=== PATIENT | female | born 1980 ===

== ENCOUNTER 2017-02-15 12:00 | Inpatient (IN) | payer BC ==
[2017-02-15] MEDS: Lactated Ringer's 1,000 ML IV SCH ×2 (14:10→19:58)
[2017-02-15 14:31] VITALS: BMI 36.3
[2017-02-15 15:26] LABS: BASO % 0.4 % (0.0-2.0); EOS # 0.1 K/uL (0.0-0.7); EOS % 0.8 % (0.0-4.0); HEMATOCRIT 36.5 % (34.0-47.0); LYMPH # 2.6 K/uL (1.0-4.3); LYMPH % 25.3 % (20.0-40.0); MEAN CELL VOLUME 84.7 fl (81.0-99.0); MEAN CORPUSCULAR HGB CONC 33.1 g/dL (33.0-37.0); MEAN PLATELET VOLUME 9.7 fl (7.2-11.7); MONO # 0.8 K/uL (0.0-0.8); MONO % 7.5 % (0.0-10.0); NEUT # 6.8 K/uL (1.8-7.0); NRBC % 0.1 % (0.0-0.0); RED CELL DISTRIBUTION WIDTH 14.2 % (11.5-14.5); WHITE BLOOD COUNT 10.3 K/uL (4.8-10.8)
[2017-02-15] MEDS ORDERED: ceFAZolin IV 2 gm in Dextrose 2 GM/50 ML BAG IVPB ONE (16:49)
[2017-02-15] MEDS ORDERED: Oxytocin 30 UNITS in Sodium Chloride 0.9% 500 ML IV ONE (16:50)
[2017-02-15] MEDS ORDERED: Triamcinolone Acetonide 40 mg/mL Inj IM ONE (17:01)
[2017-02-15] MEDS ORDERED: Phenylephrine 10 mg/ml Inj ONE (17:15)
[2017-02-15] MEDS ORDERED: Morphine 5 mg/10 ml preservative-free Inj(Duramorph) ONE (17:16)
[2017-02-15] MEDS ORDERED: Oxycodone/Acetaminophen 5/325 mg Tab PO PRN (18:04)
[2017-02-15] MEDS ORDERED: Naloxone 0.4 mg/ml Inj (Adult) IVP PRN ×2 (18:24→19:52)
[2017-02-15] MEDS ORDERED: DiphenhydrAMINE 50 mg/ml Inj IVP PRN ×2 (18:24→19:52)
[2017-02-16] MEDS ORDERED: Lactated Ringer's 1,000 ML IV SCH (02:30)
--- NOTE | 2017-02-16 04:55 | OP ---
PROCEDURE DATE: 02/14/2017 PREOPERATIVE DIAGNOSES: Intrauterine at 38 weeks, history of previous section secondary to hemolysis, elevated liver enzymes, low platelets syndrome. POSTOPERATIVE DIAGNOSES: Intrauterine at 38 weeks, history of previous section secondary to hemolysis, elevated liver enzymes, low platelets syndrome. OPERATION PERFORMED: Repeat low flap transverse section via Pfannenstiel skin incision. SURGEON: Nina Whatley MD PAINTER BARREL: Dr. Jason Tinsley. He was instrumental in the care of the patient. He helped to create exposure and obtaining hemostasis, helped to deliver the infant and closure of the patient. The procedure would not have been possible without his assistance. ANESTHESIA: Spinal. ANESTHESIA ADMINISTERED BY: Dr. Heaton. ESTIMATED BLOOD LOSS: 800 mL. URINE OUTPUT: Craven catheter put out approximately 100 mL of clear urine. INTRAVENOUS FLUID INTAKE: Patient received 1800 mL of D5LR intraoperatively. OPERATIVE FINDINGS: Baby boy, vertex presentation, Apgars 9 and 9, weighing 3550 g. Normal uterus, tubes and ovaries were identified. COMMENTS: After informed consent was obtained and M consultation, the recommendation for delivery at 38 weeks was made secondary to patient's previous history of HELLP syndrome. We discussed the risks, benefits and alternatives of the surgery. Patient agreed to plan of care. DESCRIPTION OF PROCEDURE: The patient was then taken to the operating room. She was given spinal anesthesia. She was then prepped and draped in the normal sterile fashion. A Pfannenstiel skin incision was then made with a scalpel, carried down to the underlying layer of fascia. The fascia was nicked in the midline. The fascial incision was then extended laterally. The superior aspect of the fascial incision was then grasped with Marcello clamps, elevated up, and the rectus muscles were dissected off using both sharp and blunt dissection. Attention was then turned to the inferior aspects of the fascial incision, which in a similar fashion was grasped with Marcello clamps, elevated up, and the rectus muscles were dissected off using both sharp and blunt dissection. The rectus muscles were then in the midline. The peritoneum was identified, grasped with smooth pickups and entered sharply with the Metzenbaum scissors. The peritoneal incision was then extended superiorly and inferiorly with good visualization of the bladder. The bladder blade was then inserted. The vesicouterine peritoneum was identified, grasped with smooth pickups and entered sharply with the Metzenbaum scissors. The incision was then extended laterally and the bladder flap was created digitally. The bladder blade was then readjusted. A low transverse incision was then made with a scalpel. The uterine incision was then extended laterally. The infant's head was then delivered atraumatically. The nose and mouth were suctioned with DeLee suction trap. The cord was clamped and cut. The was handed off to awaiting pediatricians. The placenta was then removed manually. The uterus was exteriorized and cleared off all clots and debris. The uterine incision was repaired with 0-Vicryl in a running locking fashion. Second layer of the same suture was used to obtain excellent hemostasis. The abdomen was then copiously irrigated. The irrigant was removed with a suction device. The uterus was returned to the abdomen. The incision was reexamined. Hemostasis was noted. The peritoneum was then closed with 2-0 Vicryl in a running fashion. The muscle was re-approximated with 0-Vicryl in an interrupted fashion. The fascia was closed with 0-Vicryl in a running fashion. The skin was closed with 4-0 on a Ian needle. All sponge, lap, needle, and instrument counts were correct x2, and the patient was taken to the recovery room in awake and stable condition. Nina Whatley MD
[2017-02-16 06:19] LABS: HEMATOCRIT 33.7 % (34.0-47.0); MEAN CELL VOLUME 83.7 fl (81.0-99.0); MEAN CORPUSCULAR HEMOGLOBIN 28.6 pg (27.0-31.0); MEAN CORPUSCULAR HGB CONC 34.2 g/dL (33.0-37.0); WHITE BLOOD COUNT 18.4 K/uL (4.8-10.8)
[2017-02-16] MEDS: Oxycodone/Acetaminophen 5/325 mg Tab PO PRN ×3 (06:44→20:19)
--- NOTE | 2017-02-16 08:24 | OBPPN ---
Datetime: 02/16/2017 08:19 PP Pain Prov: Within normal limits PP Nausea Prov: Denies PP Flatus Prov: No PP BM Prov: No PP Abdomen/Uterus Prov: Normal PP Lochia Prov: Normal PP Extremities Prov: Normal PP C/S Incision Prov: Normal PP Comments Phys Exam Prov: Incision w/ bandage in place PP Impression Prov: Normal progression PP Plan Prov: Continue present management PP Progress Note Prov: POD 1 s/p Repeat c/s, doing well, denies nausea this am, breast and bottle fe eding Continue current management Vital Signs Provider PP: Reviewed
[2017-02-16] MEDS: Multivitamin With Minerals Tab PO SCH (08:46)
[2017-02-16] MEDS ORDERED: Multivitamin With Minerals Tab PO SCH (09:00)
[2017-02-17] MEDS: Oxycodone/Acetaminophen 5/325 mg Tab PO PRN ×2 (04:46→10:42)
[2017-02-17] MEDS ORDERED: Bisacodyl 5mg EC Tab PO PRN ×2 (06:00)
[2017-02-17] MEDS: Multivitamin With Minerals Tab PO SCH (09:06)
--- NOTE | 2017-02-18 08:43 | OBPPN ---
Datetime: 02/17/2017 08:39 PP Pain Prov: Within normal limits PP Nausea Prov: Denies PP Flatus Prov: Yes PP BM Prov: No PP Breasts Prov: Normal PP Heart Prov: Normal PP Lungs Prov: Normal PP Abdomen/Uterus Prov: Normal PP Lochia Prov: Normal PP Vulva/Perineum Prov: Normal PP CVA Tenderness Prov: Normal PP Extremities Prov: Normal PP Comments Phys Exam Prov: Inc C/D/I uterus firm below umbilicus No DCT bilaterally PP Impression Prov: Normal progression PP Plan Prov: Continue present management PP Progress Note Prov: POD#2 s/p repeat C/S Recovering well, no complications IP PP Procedures: None Vital Signs Provider PP: Reviewed; Within Normal Limits
--- NOTE | 2017-02-18 08:47 | OBPPN ---
Datetime: 02/18/2017 08:44 PP Pain Prov: Within normal limits PP Nausea Prov: Denies PP Flatus Prov: Yes PP BM Prov: Yes PP Breasts Prov: Normal PP Heart Prov: Normal PP Lungs Prov: Normal PP Abdomen/Uterus Prov: Normal PP Lochia Prov: Normal PP Vulva/Perineum Prov: Normal PP CVA Tenderness Prov: Normal PP Extremities Prov: Normal PP C/S Incision Prov: Normal PP Impression Prov: Normal progression PP Plan Prov: Discharge PP Progress Note Prov: She had BM; tolerated diet ready to go home A: POD 3 section PLAN: discharge home and follow up in 1-2w [facility] Vital Signs Provider PP: Within Normal Limits
[2017-02-18] MEDS: Multivitamin With Minerals Tab PO SCH (10:14)
[2017-02-18 20:12] VITALS: BP 124/89; PULSE 80; RESP 20; TEMP 97.9; O2SAT 98
== END 2017-02-18 12:30 | disposition home or self-care (01) | DRG 766 ==
LOC: H.L&D 14:31 → H.OB/GYN 22:08
PROVIDERS: ADMIT Obstetrics & Gynecology Gynecology; ATTEND Obstetrics & Gynecology Gynecology
PROC: 10D00Z1 Extraction of Products of Conception, Low, Open Approach (ICD-10-PCS; principal; 2017-02-15)
PROC: 4A1HXCZ Monitoring of Products of Conception, Cardiac Rate, External Approach (ICD-10-PCS; 2017-02-15)
DX: O34.211 Maternal care for low transverse scar from previous cesarean delivery (principal); O69.81X0 Labor and delivery complicated by cord around neck, without compression, not applicable or unspecified; Z37.0 Single live birth; Z3A.38 38 weeks gestation of pregnancy